=== PATIENT | female | born 1950 | race Caucasian/White ===

== ENCOUNTER 2019-10-07 15:26 | Emergency (ER) | payer MEDICARE, OTHER, SELFPAY ==
--- NOTE | ~2019-10-07 | XR_ITS ---
EXAMINATION: XR knee RT 3V EXAM DATE: 10/07/2019 16:09 INDICATION: Initial encounter following injury, with pain of the right knee. [place] pop. TECHNIQUE: Three projections of the right knee. Comparison is made to prior examination from 04/16/20 11. FINDINGS: There are no acute right kneefractures or dislocations identified. There is no subcutaneo us gas. The soft tissue is unremarkable. There are no radiopaque foreign bodies. There is no join t effusion. There is old proximal tibial fracture which is healed, with old screw tracks identified. There is mild primary osteoarthritis. If symptoms persist, noncontrast MRI is best modality for evaluating ligamentous injury. IMPRESSION: 1. XR knee RT 3V exam without acute osseous findings. 2. Mild osteoarthritis. Reviewed, dictated and finalized at location A.
[2019-10-07 15:32] VITALS: BP 125/74; PULSE 64; RESP 18; TEMP 36.5; O2SAT 98
--- NOTE | 2019-10-07 15:46 | PC.NURSE ---
Pt states she was getting on step stool and felt a pop in her R knee. Pt states she cannot put pressure on her R leg. Pt states she took naproxyn 45 mins ago. Pt states pain is behind knee. Pt is A&Ox4. Pt has family at bedside. Pt has call light in reach
--- NOTE | 2019-10-07 15:56 | ED.GENADULT ---
HPI - General Adult General Chief complaint: Extremity Injury, Lower Stated complaint: R knee pain Time Seen by Provider: 10/07/19 15:27 Source: patient and family Mode of arrival: ambulatory Limitations: no limitations History of Present Illness HPI narrative: Patient is a 69-year-old female who presents with family for evaluation of right knee pain. Patient was stepping up onto a step or when she felt a pop in the lateral aspect of the posterior right knee and has since had moderate aching pain worse with activity and movement. Patient denies other injuries or complaints or radicular symptoms or paresthesias. Patient denies similar occurrence in the past. Patient on arrival in the room in no distress did take naproxen just prior to arrival with some relief Related Data Home Medications Medication Instructions Recorded Confirmed esomeprazole sodium 20 mg PO DAILY 10/07/19 10/07/19 furosemide 10 mg PO DAILY 10/07/19 10/07/19 lisinopril 20 mg PO DAILY 10/07/19 10/07/19 metformin 500 mg PO BID 10/07/19 10/07/19 metoprolol tartrate 25 mg PO DAILY 10/07/19 10/07/19 Allergies Allergy/AdvReac Type Severity Reaction Status Date / Time buspirone Allergy Unknown Itching Verified 10/07/19 16:03 cefadroxil Allergy Unknown Itching Verified 10/07/19 16:03 hydrocodone Allergy Unknown Swelling Verified 10/07/19 16:02 Review of Systems Review of Systems: Narrative: CONSTITUTIONAL: Denies fever, chills, or sweats. SKIN: Denies bruising or swelling MUSCULOSKELETAL: Tenderness of the posterior lateral right knee no deformity noted NEUROLOGIC: Denies numbness or tingling PMFSH Past Medical History Medical History Chronic kidney disease Diabetes mellitus Obesity Family History Family History (Updated 12/26/15 @ 23:19 by DOCTOR UNKNOWN) Sibling Family history of bipolar disorder Hypertension Family history of diabetes mellitus in first degree relative Family history of coronary artery disease Mother Family history of throat cancer Family history of emphysema Father Patient's father is Family history of emphysema Acute myocardial infarction Other Diabetes mellitus Family history of cardiovascular disease Family history of kidney disease Social History Social History Smoking status: Never smoker Alcohol intake: current Gender identity (if verbalized by the patient): Female Exam Narrative: Exam Narrative: GENERAL: Well-appearing, well-nourished, and in no acute distress. HEAD: Normocephalic, atraumatic. EYES: PERRLA and EOMI. ENT: Nares clear, no rhinorrhea or epistaxis. Mucous membranes moist. EXTREMITIES: Tenderness to the posterior lateral aspect of the right knee no deformities noted SKIN: Warm, dry, no rash. NEURO: No focal deficits. Alert and oriented x3. Neurovascularly intact. Capillary refill less than 2 seconds PSYCH: Normal mood and affect. Course Course Emergency Course: Patient in the room in no distress aware of case findings treatment plan and diagnosis agreeing to follow-up as directed or to return if symptoms worsen or concern Vital Signs Vital signs: Vital Signs Temperature 97.7 F 10/07/19 15:32 Pulse Rate 64 10/07/19 15:32 Respiratory Rate 18 10/07/19 15:32 Blood Pressure 125/74 10/07/19 15:32 Pulse Oximetry 98 10/07/19 15:32 Temperature 97.7 F 10/07/19 15:32 Pulse Rate 64 10/07/19 15:32 Respiratory Rate 18 10/07/19 15:32 Blood Pressure 125/74 10/07/19 15:32 Pulse Oximetry 98 10/07/19 15:32 Medical Decision Making MDM Narrative Medical decision making narrative: Patients injury or pain is consistent with musculoskeletal etiology. No signs of neurological or vascular compromise on exam. Compartments and tisues are soft without signs of compartment syndrome. Pain is felt appropriate for further evaluation on an
== END 2019-10-07 16:51 | disposition home or self-care (01) ==
PROVIDERS: Emergency Provider Emergency Medicine; PCP Family Medicine Sports Medicine
DX: S83.242A Other tear of medial meniscus, current injury, left knee, initial encounter (principal); E11.22 Type 2 diabetes mellitus with diabetic chronic kidney disease; E66.9 Obesity, unspecified; Z68.41 Body mass index [BMI] 40.0-44.9, adult; Z79.84 Long term (current) use of oral hypoglycemic drugs; M17.11 Unilateral primary osteoarthritis, right knee; X50.9XXA Other and unspecified overexertion or strenuous movements or postures, initial encounter
CPT/HCPCS: 73562; 99283; A9270

== ENCOUNTER → 2020-03-10 11:07 | Outpatient (CLI) | payer MEDICARE, OTHER, SELFPAY ==
--- NOTE | ~2020-03-10 | MR_ITS ---
EXAMINATION: MR knee RT wo con DATE: 03/10/2020 11:48 INDICATION: Right knee pain TECHNIQUE: Magnetic resonance imaging (MRI) of the right knee was performed without intravenous contr ast. Sequences included coronal PD-weighted FSE, coronal PD-weighted FS FSE, sagittal T2-weighted FS E, sagittal PD-weighted FS FSE and axial PD weighted fat saturated FSE. COMPARISON: None. FINDINGS: Medial compartment: Medial extrusion of the medial meniscal body with radial tear near the posterior root of the medial m eniscus. There is deep chondral ulceration along the anterior to central weightbearing medial femoral condyle with subtle scattered irregularity to the articular cortex. There is scattered mild subartic ular edema along the posterior weightbearing medial femoral condyle where there is less severe partia l thickness cartilage loss but with deep chondral fissuring. Additional partial thickness cartilage l oss at the medial tibial plateau with mild chondral surface regularity anteriorly and without degener ative subarticular changes. Lateral compartment: Small radial tear along the inner third of the lateral meniscal body. Mild partial-thickness cartilag e loss along the lateral side of the weightbearing lateral femoral condyle. Patellofemoral compartment: Deep chondral ulceration at the medial patellar facet, apical ridge and medial side of the lateral fa cet with mild irregularity to the articular cortex along the cephalad aspect of the apical ridge. Add itional full/near full-thickness cartilage loss along the medial trochlea without degenerative subcho ndral changes. Deep chondral fissuring along the inferior aspect of the lateral trochlea. Ligaments and tendons: Anterior and posterior cruciate ligaments are normal. The medial collateral ligament and fibular dalia ateral ligament complex are normal. There are postoperative changes along the patellar tendon and at the anterior tibial tuberosity where there are residual screw tracks suggesting prior realignment ost eotomy. The extensor mechanism is otherwise unremarkable. The visualized medial and lateral hamstring tendons as well as the iliotibial band are normal. Fluid: Small right knee joint effusion. No loose osteochondral bodies identified. Large Holbrook's cyst measuri ng 7.0 x 3.6 x 1.7 cm. Osseous/other: There is some red marrow reexpansion the metaphyseal regions of the distal femur and proximal tibia. No fracture or abnormal marrow replacing process. IMPRESSION: 1. Full-thickness tear near the posterior root of the medial meniscus. 2. Likely radial tear along the inner third of the lateral meniscal body. 3. Tricompartmental osteoarthritis, moderate severity with extensive moderate to high-grade chondroma lacia in the medial and patellofemoral compartments and mild with moderate grade chondromalacia the l ateral compartment. 4. Small right knee joint effusion and large Holbrook's cyst. 5. Old healed fracture versus more likely patellar tendon realignment osteotomy at the anterior tibia l tubercle. Reviewed, dictated and finalized at location B. IMPRESSION: 1. Full-thickness tear near the posterior root of the medial meniscus. 2. Likely radial tear along the inner third of the lateral meniscal body. 3. Tricompartmental osteoarthritis, moderate severity with extensive moderate t o high-grade chondromalacia in the medial and patellofemoral compartments and m ild with moderate grade chondromalacia the lateral compartment. 4. Small right knee joint effusion and large Holbrook's cyst. 5. Old healed fracture versus more likely patellar tendon realignment osteotomy at the anterior tibial tubercle.
== END ==
PROVIDERS: Visit Provider Orthopaedic Surgery
DX: M25.561 Pain in right knee (principal); S83.241A Other tear of medial meniscus, current injury, right knee, initial encounter
CPT/HCPCS: 73721

== ENCOUNTER 2022-08-17 13:52 | Emergency (ER) | payer MEDICARE, OTHER, SELFPAY ==
--- NOTE | ~2022-08-17 | XR_ITS ---
EXAMINATION: XR chest 2V DATE: 08/17/2022 14:25 INDICATION: Productive cough TECHNIQUE: PA and lateral views of the chest are obtained. COMPARISON: 06/10/2009 FINDINGS: The lungs are free of acute opacities. No pleural effusion or pneumothorax. The cardiomedia stinal silhouette is normal. There is moderate thoracic spondylosis. Surgical clips are noted in the right upper quadrant. IMPRESSION: 1. No acute cardiopulmonary abnormality. Reviewed, dictated and finalized at location L.
[2022-08-17 14:04] VITALS: BP 134/62; PULSE 101; RESP 16; TEMP 36.7; O2SAT 97
--- NOTE | 2022-08-17 14:05 | ED.URI ---
HPI - URI/Sore Throat General Chief Complaint: Upper Respiratory Infection Stated Complaint: cough Time Seen by Provider: 08/17/22 14:05 Source: patient, RN notes reviewed and old records reviewed Mode of arrival: ambulatory Limitations: no limitations History of Present Illness HPI Narrative: 72-year-old female presents to the [facility] with complaints of a cough for approximately 1 week. States has been had the same symptoms last week and was prescribed a steroid an antibiotic and is doing much better. Denies any chest pain, abdominal pain. Denies fevers. No nausea vomiting or diarrhea. States she gets a little short of breath when she coughs too much Related Data Home Medications Medication Instructions Recorded Confirmed esomeprazole sodium 20 mg PO DAILY 10/07/19 08/17/22 furosemide 10 mg PO DAILY 10/07/19 08/17/22 metoprolol tartrate 25 mg PO DAILY 10/07/19 08/17/22 aspirin 81 mg tablet,delayed 81 mg PO DAILY 10/10/19 08/17/22 release (Adult Aspirin Regimen) cinnamon bark 500 mg capsule 500 mg PO DAILY 10/10/19 08/17/22 montelukast 10 mg tablet 10 mg PO DAILY 10/10/19 08/17/22 multivitamin 1 cap PO DAILY 10/10/19 08/17/22 calcium carbonate 600 mg calcium 500 mg PO DAILY 10/24/19 08/17/22 (1,500 mg) tablet (Calcium) cholecalciferol (vitamin D3) 1,250 1,250 mcg PO WEEKLY 10/24/19 08/17/22 mcg (50,000 unit) capsule semaglutide 1 mg/dose (2 mg/1.5 1 mg subcut WEEKLY 08/06/20 08/17/22 mL) subcutaneous pen injector (Ozempic) lisdexamfetamine 30 mg capsule mg 08/17/22 (Vyvanse) Allergies Allergy/AdvReac Type Severity Reaction Status Date / Time buspirone Allergy Unknown Itching Verified 10/24/19 14:41 cefadroxil Allergy Unknown Itching Verified 10/24/19 14:41 hydrocodone Allergy Unknown Swelling Verified 10/24/19 14:41 Review of Systems Review of Systems: All systems reviewed & are unremarkable except as noted in HPI and below Constitutional: Constitutional: Reports no additional constitutional complaints Eyes: Eyes: Reports no additional eye complaints ENT: Reports system reviewed and no additional complaints, except as documented Cardiovascular: Cardiovascular: Reports no additional cardiovascular complaints, Denies chest pain and Denies dyspnea Respiratory: Respiratory: Reports as per HPI, Reports chest congestion, Reports cough and Denies dyspnea Gastrointestinal: Gastrointestinal: Reports no additional gastrointestinal complaints, Denies abdominal pain, Denies nausea and Denies vomiting Musculoskeletal: Musculoskeletal: Reports no additional musculoskeletal complaints Integumentary/Breasts: Skin/Breast: Reports system reviewed and no additional complaints, except as docu Neurologic: Reports system reviewed and no additional complaints, except as documented Psychiatric: Psychiatric: Reports no additional psychiatric complaints Allergic/Immunologic: Allergic/Immunologic: Reports no additional allergic/immunologic complaints [facility] Past Medical History Medical History Chronic kidney disease Diabetes mellitus pt notes last A1c was 5.1 Hypertension Obesity Osteoarthritis of right knee Skin cancer Surgical History Surgical History H/O kidney removal right side 1988 H/O right knee surgery Gregory procedure H/O: hysterectomy History of cholecystectomy History of left knee replacement (~2015) 2016 Dr Zuniga S/P foot surgery, right Dr. Falcon Family History Family History Sibling Family history of bipolar disorder Hypertension Family history of diabetes mellitus in first degree relative Family history of coronary artery disease Mother Family history of throat cancer Family history of emphysema Family history of cardiovascular disease Father Patient's father is Family history of e
[2022-08-17 14:07] VITALS: BP 134/62; PULSE 101; RESP 16; TEMP 36.7; O2SAT 97
== END 2022-08-17 14:55 | disposition home or self-care (01) ==
PROVIDERS: Emergency Provider Nurse Practitioner
DX: J40 Bronchitis, not specified as acute or chronic (principal); Z20.822 Contact with and (suspected) exposure to COVID-19; I12.9 Hypertensive chronic kidney disease with stage 1 through stage 4 chronic kidney disease, or unspecified chronic kidney disease; E11.22 Type 2 diabetes mellitus with diabetic chronic kidney disease; N18.9 Chronic kidney disease, unspecified; E66.9 Obesity, unspecified; Z68.41 Body mass index [BMI] 40.0-44.9, adult; M17.11 Unilateral primary osteoarthritis, right knee; Z85.828 Personal history of other malignant neoplasm of skin; Z90.5 Acquired absence of kidney; Z96.652 Presence of left artificial knee joint
CPT/HCPCS: 71046; 87426; 87804; 99213; C9803; G0463

== ENCOUNTER 2023-08-08 12:13 | Outpatient (CLI) | payer MEDICARE, OTHER, SELFPAY ==
--- NOTE | ~2023-08-08 | XR_ITS ---
Supine and upright views of the abdomen Clinical history: Diarrhea Findings: Bowel gas pattern is nonspecific. No evidence for obstruction or free air. No abnormal mass lesion or calcification is seen. Right upper quadrant surgical clips are present. Osseous structures are intact. Impression: No significant abnormality is seen. Reviewed, dictated and finalized at [facility]. Impression: No significant abnormality is seen.
== END 2023-08-08 12:14 | disposition home or self-care (01) ==
LOC: ANHIMG 12:16
PROVIDERS: PCP Family Medicine Sports Medicine; Visit Provider Nurse Practitioner Family
DX: R19.7 Diarrhea, unspecified (principal)
CPT/HCPCS: 74018

== ENCOUNTER 2023-11-23 00:29 | Day surgery (SDC) | payer MEDICARE, OTHER, SELFPAY ==
[2023-11-07 12:24] VITALS: BMI 41.5
[2023-11-23 10:31] VITALS: BP 146/61; PULSE 78; RESP 18; TEMP 36.1; O2SAT 100
[2023-11-23] MEDS: LACTATED RINGERS 1,000 ML 150 ML IV CONT (10:45)
--- NOTE | 2023-11-23 11:18 | WPDANESEPPF ---
Anes - Initial Pre Proc Eval Procedure: Operation Date: 11/23/23 11:30 Proposed Procedures p Colonoscopy - Jaleel Nichole MD Date/Time: 11/23/23 11:18 Surgeon: Jaleel Nichole MD Pre Op Diagnosis: Diarrhea, CIBH, Fam. Hx. Colon CA Patient Data Age: 73 Gender: F Height: 1.45 m Weight: 88.5 kg Last Vital Signs Temp 36.1 C L 11/23/23 10:31 Pulse 78 11/23/23 10:31 Resp 18 11/23/23 10:31 BP 146/61 H 11/23/23 10:31 Pulse Ox 100 11/23/23 10:31 O2 Del Method Room Air 11/23/23 10:31 Allergies Allergy/AdvReac Type Severity Reaction Status Date / Time buspirone Allergy Unknown Itching Verified 11/23/23 10:29 hydrocodone Allergy Unknown Swelling Verified 11/23/23 10:29 Home Medications Medication Instructions Recorded Confirmed Type acetaminophen 650 mg 650 mg PO Q8H PRN pain #14 tabs 10/07/19 11/07/23 Rx tablet,extended release (Tylenol Arthritis Pain) furosemide 20 mg PO DAILY 10/07/19 11/07/23 History metoprolol tartrate 25 mg PO BID 10/07/19 11/07/23 History cinnamon bark 500 mg capsule 1,000 mg PO DAILY 10/10/19 11/07/23 History montelukast 10 mg tablet 10 mg PO DAILY 10/10/19 11/07/23 History multivitamin 1 cap PO DAILY 10/10/19 11/07/23 History semaglutide 1 mg/dose (2 mg/1.5 1 mg subcut WEEKLY 08/06/20 11/07/23 History mL) subcutaneous pen injector (Ozempic) lisdexamfetamine 30 mg capsule 30 mg PO DAILY 08/17/22 11/07/23 History (Vyvanse) calcium carbonate 600 mg-vitamin 2 tablet PO BID 11/25/22 11/07/23 History D3 10 mcg (400 unit) tablet (Calcium with Vitamin D) dapagliflozin propanediol 5 mg 5 mg PO DAILY 11/25/22 11/07/23 History tablet (Farxiga) estradiol 0.5 mg tablet 0.5 mg PO DAILY 11/25/22 11/07/23 History famotidine 40 mg tablet 40 mg PO BID 11/25/22 11/07/23 History finasteride 5 mg tablet 5 mg PO DAILY 11/25/22 11/07/23 History losartan 50 mg tablet 50 mg PO DAILY 11/25/22 11/07/23 History Patient hx anesthesia problems: none Family hx anesthesia problems: none Results Review: All pre-operative results and documents have been reviewed as part of the pre-operative evaluation. [facility] Past Medical History Medical History Bowel habit changes Chronic kidney disease Diabetes mellitus pt notes last A1c was 5.1 Diarrhea Encounter for screening colonoscopy Family history of colon cancer Hypertension Obesity Osteoarthritis of right knee Skin cancer Surgical History Surgical History H/O kidney removal right side 1988 H/O right knee surgery Gregory procedure H/O: hysterectomy History of cholecystectomy History of left knee replacement (~2015) 2016 Dr Zuniga S/P foot surgery, right Dr. Falcon Family History Family History Sibling Family history of bipolar disorder Hypertension Family history of diabetes mellitus in first degree relative Family history of coronary artery disease Mother Family history of throat cancer Family history of emphysema Family history of cardiovascular disease Father Patient's father is Family history of emphysema Acute myocardial infarction Family history of cardiovascular disease Other Diabetes mellitus Family history of kidney disease Social History Social History Smoking status: Never smoker Alcohol intake: never Substance use: never Substance use type: does not use Living arrangements: with family Additional living arrangements comments: and granddaughter Gender identity (if verbalized by the patient): Female Spiritual care concerns: No Anes - Eval Final PreProcedure Day of Procedure 11/23/23 11:18 Patient weight: morbidly obese Heart: regular rate and rhythm Lungs: cl
--- NOTE | 2023-11-23 11:23 | PM.HPGS ---
History of Present Illness History of Present Illness Consent: Risks, benefits, and alternatives have been discussed and questions answered. Patient agrees to proceed with procedure. Chief complaint: Fam. Hx. Colon CA Narrative: Deisy Rucker is a 73 year old female with last colonoscopy 2014, sister had colon cancer. Few months ago had diarrhea but resolved after discontinued using ozempic Review of Systems Review of Systems: All systems reviewed & are unremarkable except as noted in HPI and below PMFSH Past Medical History Medical History Bowel habit changes Chronic kidney disease Diabetes mellitus pt notes last A1c was 5.1 Diarrhea Encounter for screening colonoscopy Family history of colon cancer Hypertension Obesity Osteoarthritis of right knee Skin cancer Surgical History Surgical History H/O kidney removal right side 1988 H/O right knee surgery Gregory procedure H/O: hysterectomy History of cholecystectomy History of left knee replacement (~2015) 2015 Dr Zuniga S/P foot surgery, right Dr. Falcon Family History Family History Sibling Family history of bipolar disorder Hypertension Family history of diabetes mellitus in first degree relative Family history of coronary artery disease Mother Family history of throat cancer Family history of emphysema Family history of cardiovascular disease Father Patient's father is Family history of emphysema Acute myocardial infarction Family history of cardiovascular disease Other Diabetes mellitus Family history of kidney disease Social History Social History Smoking status: Never smoker Alcohol intake: never Substance use: never Substance use type: does not use Living arrangements: with family Additional living arrangements comments: and granddaughter Gender identity (if verbalized by the patient): Female Spiritual care concerns: No Meds Home Medications and Allergies Home Medications Medication Instructions Recorded Confirmed Type acetaminophen 650 mg 650 mg PO Q8H PRN pain #14 tabs 10/07/19 11/07/23 Rx tablet,extended release (Tylenol Arthritis Pain) furosemide 20 mg PO DAILY 10/07/19 11/07/23 History metoprolol tartrate 25 mg PO BID 10/07/19 11/07/23 History cinnamon bark 500 mg capsule 1,000 mg PO DAILY 10/10/19 11/07/23 History montelukast 10 mg tablet 10 mg PO DAILY 10/10/19 11/07/23 History multivitamin 1 cap PO DAILY 10/10/19 11/07/23 History semaglutide 1 mg/dose (2 mg/1.5 1 mg subcut WEEKLY 08/06/20 11/07/23 History mL) subcutaneous pen injector (Ozempic) lisdexamfetamine 30 mg capsule 30 mg PO DAILY 08/17/22 11/07/23 History (Vyvanse) calcium carbonate 600 mg-vitamin 2 tablet PO BID 11/25/22 11/07/23 History D3 10 mcg (400 unit) tablet (Calcium with Vitamin D) dapagliflozin propanediol 5 mg 5 mg PO DAILY 11/25/22 11/07/23 History tablet (Farxiga) estradiol 0.5 mg tablet 0.5 mg PO DAILY 11/25/22 11/07/23 History famotidine 40 mg tablet 40 mg PO BID 11/25/22 11/07/23 History finasteride 5 mg tablet 5 mg PO DAILY 11/25/22 11/07/23 History losartan 50 mg tablet 50 mg PO DAILY 11/25/22 11/07/23 History Allergies Allergy/AdvReac Type Severity Reaction Status Date / Time buspirone Allergy Unknown Itching Verified 11/23/23 10:29 hydrocodone Allergy Unknown Swelling Verified 11/23/23 10:29 Vital Signs Vital Signs - 24 hr 11/23/23 10:31 Temperature 97 F L Pulse Rate 78 Respiratory Rate 18 Blood Pressure 146/61 H Pulse Oximetry 100 Oxygen Delivery Room Air Exam Const: General: comfortable and no acute distress HENMT: Face/Nose/Sinus: Normal nares present Eyes: General: appearance normal, both eye
[2023-11-23 11:42] VITALS: BP 99/45; PULSE 69; RESP 23; O2SAT 98
[2023-11-23 11:52] VITALS: BP 103/62; PULSE 70; RESP 20; O2SAT 100
[2023-11-23 12:02] VITALS: BP 131/76; PULSE 65; RESP 20; O2SAT 100
== END 2023-11-23 12:19 | disposition home or self-care (01) ==
PROVIDERS: PCP Family Medicine Sports Medicine; Visit Provider Internal Medicine Gastroenterology
PROC: 0DJD8ZZ Inspection of Lower Intestinal Tract, Via Natural or Artificial Opening Endoscopic (ICD-10-PCS; CPT 45378; principal; 2023-11-23 11:30)
DX: Z12.11 Encounter for screening for malignant neoplasm of colon (principal); D12.0 Benign neoplasm of cecum; D12.4 Benign neoplasm of descending colon; D12.8 Benign neoplasm of rectum; K64.8 Other hemorrhoids; K57.30 Diverticulosis of large intestine without perforation or abscess without bleeding; I12.9 Hypertensive chronic kidney disease with stage 1 through stage 4 chronic kidney disease, or unspecified chronic kidney disease; N18.9 Chronic kidney disease, unspecified; E11.9 Type 2 diabetes mellitus without complications; E66.01 Morbid (severe) obesity due to excess calories; Z68.41 Body mass index [BMI] 40.0-44.9, adult; Z79.85 Long-term (current) use of injectable non-insulin antidiabetic drugs; Z98.890 Other specified postprocedural states; Z90.49 Acquired absence of other specified parts of digestive tract; Z85.828 Personal history of other malignant neoplasm of skin; Z80.0 Family history of malignant neoplasm of digestive organs; Z80.1 Family history of malignant neoplasm of trachea, bronchus and lung; Z82.49 Family history of ischemic heart disease and other diseases of the circulatory system
CPT/HCPCS: G0105; 88305; J2704; J7120